=== PATIENT | female | born 1965 | race Native Hawaiian/Other Pacific Islander ===

== ENCOUNTER 2022-03-28 09:22 | Emergency (ER) | payer OTHER ==
[~2022-03-28] VITALS: Ht 170.2 cm; Wt 81.6 kg
[2022-03-28 09:26] VITALS: BP 156/89; TEMP 98.5
== END 2022-03-28 10:20 | disposition home or self-care (01) ==
LOC: ED 09:22
DX: J02.9 Acute pharyngitis, unspecified (principal)
CPT/HCPCS: 87502; 87651; 99283